=== PATIENT | female | born 1965 | race Caucasian/White ===

== ENCOUNTER 2018-04-17 06:05 | Day surgery (SDC) | payer OTHER ==
[2018-04-14 17:08] VITALS: BMI 24.5
[~2018-04-17 06:05] MED LIST: BACITRACIN 15 GM TUBE TOPICAL OINTMENT TP ONE; LIDOCAINE 1%/EPI 1:100000 (20 ML MULTI DOSE VIAL) IJ ONE
[2018-04-17] MEDS ORDERED: LIDOCAINE 1%/EPI 1:100000 (20 ML MULTI DOSE VIAL) ONE (07:16)
[2018-04-17] MEDS ORDERED: BACITRACIN 15 GM TUBE TOPICAL OINTMENT ONE (07:16)
[2018-04-17] MEDS ORDERED: COCAINE HCL 4% TOPICAL SOLUTION 4 ML BOTTLE TP ONE ×2 (07:19→08:23)
[2018-04-17] MEDS ORDERED: SEVOFLURANE 250 ML BTL ONE (07:38)
[2018-04-17] MEDS ORDERED: DESFLURANE GAS 240 ML BOTTLE IH ONE (07:38)
[2018-04-17] MEDS ORDERED: MIDAZOLAM HCL 2 MG/2 ML SINGLE DOSE VIAL ONE (07:49)
--- NOTE | 2018-04-17 08:02 | HP ---
Admitting History and Physical - Admission Chief Complaint: Nasal congestion History of Present Illness: She has a h/o nasal polyps, previous FESS 20 yrs ago, and worsening of sinus nasal sx for some time , refractory to meds, steroid, cortisone injections. History Source: Patient, Medical Record Limitations to Obtaining History: No Limitations - Past Medical History Pulmonary: Yes: Asthma Gastrointestinal: Yes: GERD ...LMP: 03/31/18 Musculoskeletal: Yes: Chronic low back pain - Smoking History Smoking history: Never smoked Have you smoked in the past 12 months: No - Alcohol/Substance Use Hx Alcohol Use: Yes (ON OCCASION) Home Medications - Allergies Allergies/Adverse Reactions: Allergies Allergy/AdvReac Type Severity Reaction Status Date / Time No Known Drug Allergies Allergy Verified 04/14/18 16:56 - Home Medications Home Medications: Ambulatory Orders Cetirizine HCl 10 mg PO DAILY 04/14/18 Mometasone/Formoterol [Dulera 200 Mcg/5 Mcg Inhaler] 2 inh IH BID 04/14/18 Omeprazole 40 mg PO DAILY 04/14/18 Ranitidine [Zantac -] 300 mg PO HS 04/14/18 Albuterol Sulfate [Proair Hfa] 8.5 gm IH 04/17/18 Physical Examination Vital Signs: Vital Signs Temperature 98.2 F 04/17/18 06:39 Pulse Rate 91 H 04/17/18 06:39 Respiratory Rate 20 04/17/18 06:39 Blood Pressure 130/71 04/17/18 06:39 O2 Sat by Pulse Oximetry (%) 98 04/17/18 06:39 Constitutional: Yes: Well Nourished, No Distress, Calm Eyes: Yes: WNL, Conjunctiva Clear, EOM Intact HENT: Yes: Other (nasal polyps, enlarged turbinates) Cardiovascular: Yes: WNL, Regular Rate and Rhythm Respiratory: Yes: WNL, Regular Gastrointestinal: Yes: WNL Musculoskeletal: Yes: WNL Extremities: Yes: WNL Problem List - Problems (1) Sinusitis chronic, ethmoidal Assessment/Plan: polyps and sinusitis for sinus surgery Code(s): J32.2 - CHRONIC ETHMOIDAL SINUSITIS
[2018-04-17] MEDS ORDERED: ROCURONIUM BROMIDE 50 MG/5 ML VIAL ONE (08:07)
[2018-04-17] MEDS ORDERED: PROPOFOL 20 ML ONE (08:07)
[2018-04-17] MEDS ORDERED: TRIAMCINOLONE ACET 40MG/1ML VIAL IJ ONE ×2 (08:10→09:13)
[2018-04-17] MEDS ORDERED: BACITRACIN 15 GM TUBE TOPICAL OINTMENT TP ONE ×2 (08:10→09:13)
[2018-04-17] MEDS ORDERED: ceFAZolin SODIUM 1 GM VIAL IVPB ONE (08:12)
[2018-04-17] MEDS ORDERED: LIDOCAINE 1%/EPI 1:100000 (20 ML MULTI DOSE VIAL) IJ ONE (08:23)
[2018-04-17] MEDS ORDERED: TRIAMCINOLONE ACET 40MG/1ML VIAL ONE (09:00)
[2018-04-17] MEDS ORDERED: NEOSTIGMINE METHYLSULFATE 0.5 MG/ML - 10 ML MDV ONE (09:14)
[2018-04-17] MEDS ORDERED: METOCLOPRAMIDE HCL INJECTION 10 MG/2 ML VIAL IVPUSH ONE (09:32)
[2018-04-17] MEDS ORDERED: ONDANSETRON 4 MG/2 ML VIAL IVPUSH PRN (09:32)
[2018-04-17] MEDS ORDERED: oxyCODONE HCL 5 MG TABLET PO PRN (09:32)
[2018-04-17] MEDS ORDERED: PROMETHAZINE HCL 25 MG/1 ML VIAL IVPB PRN (09:32)
[2018-04-17] MEDS ORDERED: LACTATED RINGERS SOLUTION 1,000 ML IV SCH (09:45)
[2018-04-17 13:01] VITALS: BP 106/64; PULSE 82; TEMP 98
--- NOTE | 2018-04-18 19:46 | PATH ---
Surgical Pathology Report Patient Name: JOB HIGHTOWER [facility]. Rec. #: [id number] /Age/Gender: 1965 (Age: 52) / F Account: [id number] Location: [facility] Taken: 04/17/2018 Received: 04/17/2018 Reported: 04/18/2018 Physicians: Juve Luis M.D. Specimen(s) Received NASAL ETHMOID AND MAXILLARY BILATERAL Clinical History Chronic maxillary sinusitis Final Diagnosis NASAL, ETHMOID, MAXILLARY CONTENTS, BILATERAL, ETHMOIDECTOMY, MAXILLARY ANTROSTOMY, TURBINECTOMY: FRAGMENTS OF NASAL (INFLAMMATORY) POLYP AND RESPIRATORY MUCOSA WITH CHRONIC SINUSITIS. Electronically Signed Irina Watson M.D. Gross Description Received in formalin labeled "nasal, ethmoid, maxillary contents bilateral," is a 4.2 x 4.0 x 0.3 cm aggregate of hernandez soft tissue fragments. A customer solutions representative portion is submitted in one cassette. /04/17/201804/17/2018
--- NOTE | 2018-04-28 20:41 | OP ---
DATE OF OPERATION: 04/17/2018 PREOPERATIVE DIAGNOSIS: Nasal polyposis, chronic sinusitis, turbinate hypertrophy. POSTOPERATIVE DIAGNOSIS: Chronic sinusitis, nasal polyposis, turbinate hypertrophy. PROCEDURE: Bilateral endoscopic ethmoidectomy, bilateral maxillary antrostomy with tissue removal, inferior turbinate outfracture and cautery, and sinus navigation. SURGEON: Juve Luis MD ANESTHESIA: General endotracheal. DESCRIPTION OF PROCEDURE: The patient was brought to the operating room and placed under general anesthesia. She was prepped and draped, and her nose was decongested with 4% cocaine on cottonoids pledgets and injected with 1% lidocaine with 1:100,000 epinephrine. This injection was placed into the inferior turbinates, lateral nasal wall, and nasal polyps. A [employer] navigation patient tracker was placed, and after calibration, the accuracy of the machine was double checked and appeared to be accurate. The nose was examined after decongesting the nose, and copious polyps were noted in both middle meatus and nasal cavities, and there was polypoid middle turbinate tissue on both sides. The surgery was first started on the right side using the microdebrider and the 0-degree endoscope. The microdebrider was 4-mm microdebrider. The polyps were excised from anterior to posterior and from inferior to superior. The polyp exoneration continued all the way through the entire anterior ethmoid into the posterior ethmoid. There was little polypoid tissue in the posterior ethmoids, and the posterior ethmoids were previously exonerated by previous operation. Polyps were noted coming off of the middle turbinates on its lateral, inferior, and medial edges. This polyp tissue was taken down with the microdebrider. Polyps were also noted coming from the maxillary ostia and maxillary sinus. A curved microdebrider blade was placed into the maxillary sinus, and polyps were removed, and the maxillary ostium was widened anteriorly and inferiorly using the curved microdebrider blade. The inferior turbinate was then outfractured, and cottonoids packing was placed to the middle meatus. The opposite side was then examined with similar pathology. Using the 0-degree endoscope and the microdebrider, the anterior ethmoid was exonerated removing polyps from anterior to posterior and from inferior to superior. The ostia was cannulated with a curved suction, which was guided and then widened with a curved microdebrider blade, and polyps were removed from the maxillary sinus and along the edge of the ostia. A straight microdebrider blade was also used to remove polypoid mucosal lining of the middle turbinate laterally, inferiorly, and medially. The inferior turbinate also was outfractured, and a cottonoid with cocaine was placed into the middle meatus. Using an [place]ona bipolar cautery set at 4, two separate passes were placed through the inferior turbinate on the left side and then the right side and then cottonoids were then replaced. After obtaining hemostasis, standard Naspore packing was placed into both ethmoid cavities with bacitracin. I injected both the Naspore packs with 0.5 mL of Kenalog 40 then placed more bacitracin in the nose and suctioned the nasal cavity. The patient was then extubated in the operating room and brought to the recovery room in stable condition. Jeramy [id number]
== END 2018-04-17 13:01 | disposition home or self-care (01) ==
LOC: JASU-SURG 06:05
PROVIDERS: ATTEND Otolaryngology
PROC: 09TV8ZZ Resection of Left Ethmoid Sinus, Via Natural or Artificial Opening Endoscopic (ICD-10-PCS; 2018-04-17)
PROC: 09TU8ZZ Resection of Right Ethmoid Sinus, Via Natural or Artificial Opening Endoscopic (ICD-10-PCS; 2018-04-17)
PROC: 8E09XBZ Computer Assisted Procedure of Head and Neck Region (ICD-10-PCS; 2018-04-17)
PROC: 8E09XBZ Computer Assisted Procedure of Head and Neck Region (ICD-10-PCS; principal; 2018-04-17 08:00)
DX: J32.8 Other chronic sinusitis (principal); J33.8 Other polyp of sinus; J34.3 Hypertrophy of nasal turbinates
CPT/HCPCS: 84703; 88304-TC; 94760